=== PATIENT | male | born 1980 | race Caucasian/White ===

== ENCOUNTER 2017-10-25 22:20 | Emergency (ER) | payer SELFPAY ==
[~2017-10-25] VITALS: Ht 172.7 cm; Wt 113.0 kg
[2017-10-26 00:27] VITALS: BP 150/76
== END 2017-10-26 01:40 | disposition home or self-care (01) ==
LOC: EMS 22:21
DX: F43.21 Adjustment disorder with depressed mood (principal)
CPT/HCPCS: 99285